=== PATIENT | male | born 1985 | race Asian ===

== ENCOUNTER → 2018-09-13 | Outpatient (CLI) | payer OTHER | END | disposition home or self-care (01) | LOC: EDBD 09:30 → CFH 09:36 | PROVIDERS: ATTEND Family Medicine | DX: R94.5 Abnormal results of liver function studies (principal) | CPT/HCPCS: 76705 ==

== ENCOUNTER 2018-12-01 07:15 | Day surgery (SDC) | payer OTHER ==
[~2018-12-01] VITALS: Ht 160 cm; Wt 62.3 kg
[2018-12-01 08:18] VITALS: BP 132/86
[2018-12-01] MEDS ORDERED: NONE PER PT (08:21)
[2018-12-01] MEDS ORDERED: SODIUM CHLORIDE 0.9% 1,000 ML IV SCH (08:39)
[2018-12-01 08:53] LABS: INTERNATIONAL NORMALIZED RATIO 0.99 (0.93-1.1); PROTHROMBIN TIME 10.5 Seconds (9.6-11.5)
[2018-12-01] MEDS ORDERED: LIDOCAINE-MPF 1%, 5ML ONE (09:03)
[2018-12-01] MEDS ORDERED: NALOXONE 1 MG/ML, 2ML ONE (09:09)
[2018-12-01] MEDS ORDERED: MIDAZOLAM 1 MG/ML, 5ML ONE (09:09)
[2018-12-01] MEDS ORDERED: FLUMAZENIL 0.1 MG/1 ML, 5ML ONE (09:09)
[2018-12-01] MEDS ORDERED: FENTANYL PF 100 MCG/2ML ONE (09:09)
[2018-12-01] MEDS ORDERED: SODIUM BICARBONATE 4.0%, 5ML ONE (09:38)
== END 2018-12-01 11:10 | disposition home or self-care (01) ==
LOC: OUT 07:15 → EDSTATUS 09:30 → OUT 11:10
PROVIDERS: ATTEND Nurse Practitioner Family
DX: K76.89 Other specified diseases of liver (principal)
CPT/HCPCS: 36415; 47000; 76942; 85610; 88307; 99156; 99157; J2250; J3010; J7030; 88313; J2310